=== PATIENT | female | born 1955 | race American Indian/Alaskan Native ===

== ENCOUNTER 2020-03-15 11:00 | Outpatient (CLI) | payer OTHER | END 2020-03-16 11:00 | disposition home or self-care (01) | LOC: SLR 11:00 | PROVIDERS: ATTEND Internal Medicine | DX: G47.33 Obstructive sleep apnea (adult) (pediatric) (principal); R40.0 Somnolence; I10 Essential (primary) hypertension; E66.9 Obesity, unspecified | CPT/HCPCS: G0399 ==

== ENCOUNTER 2021-01-16 20:24 | Emergency (ER) | payer MEDICARE, OTHER ==
[2021-01-16 20:41] VITALS: BP 171/101
--- NOTE | 2021-01-16 20:57 | Emergency Department Report ---
ED Lower Extremity HPI - General Chief Complaint: Extremity Injury, Lower Stated Complaint: RT HIP PAIN Time Seen by Provider: 01/16/21 20:52 Source: patient Mode of arrival: Ambulatory Limitations: No Limitations - History of Present Illness Initial Comments: The patient was evaluated in the emergency department for symptoms described in the history of present illness. He/she was evaluated in the context of the global COVID-19 pandemic, which necessitated consideration that the patient might be at risk for infection with the virus that causes COVID-19. Institutional protocols and algorithms that pertain to the evaluation of patients at risk for COVID-19 are in a state of rapid change based on information released by regulatory bodies including the CDC and federal and state organizations. These policies and algorithms were followed during the patient's care in the emergency department. Please note that these policies, procedures and recommendations changed on a rapid basis. 65-year-old -[place] female presents to the emergency room stating she has some pain in her right hip. Patient reports that she had tripped over some shoes but caught herself and now having pain in her right hip mostly in the middle groin area. Patient reports she has a history of hip replacement 2002 and concerned that she may have injured herself. She denies any true fall. She has not taken anything for it and this happened just about an hour prior to arrival. She reports that she started off using a cane and then went to crutches. Patient states that her orthopedic provider was Dr. Gerardo Camacho at [place]. She does have a primary care provider Dr. Ramirez at [facility]. Complaint: hip injury Onset/Timin -: hour(s) Injury: Hip: Right Type of Injury: hyperflexion Place: home Severity scale (0 -10): 7 Improves With: immobilization Worsens With: weight bearing, movement Associated Symptoms: able to partially bear weight - Related Data Allergies Allergy/AdvReac Type Severity Reaction Status Date / Time Penicillins AdvReac Hives Verified 01/16/21 20:36 ED Review of Systems ROS: Stated complaint: RT HIP PAIN Other details as noted in HPI Comment: All other systems reviewed and negative ED Past Medical Hx - Past Medical History Hx Hypertension: Yes - Surgical History Past Surgical History?: Yes Additional Surgical History: R hip replacement - Social History Smoking Status: Former Smoker Substance Use Type: Alcohol ED Physical Exam - General Limitations: No Limitations General appearance: alert, in no apparent distress - Head Head exam: Present: atraumatic, normocephalic - Eye Eye exam: Present: normal appearance - ENT ENT exam: Present: mucous membranes moist - Neck Neck exam: Present: normal inspection - Respiratory Respiratory exam: Present: normal lung sounds bilaterally. Absent: respiratory distress - Cardiovascular Cardiovascular Exam: Present: regular rate, normal rhythm. Absent: systolic murmur, diastolic murmur, rubs, gallop - GI/Abdominal GI/Abdominal exam: Present: soft, normal bowel sounds - Extremities Exam Extremities exam: Present: normal inspection - Expanded Lower Extremity Exam Right Hip exam: Present: full ROM, external rotation, internal rotation. Absent: tenderness, swelling, ecchymosis, deformity, shortening, pelvic stability Upper Leg exam: Present: normal inspection, full ROM Knee exam: Present: normal inspection Lower Leg exam: Present: normal inspection, full ROM - Back Exam Back exam: Present: normal inspection - Neurological Exam Neurological exam: Present: alert, oriented X3 - Psychiatric Psychiatric exam: Present: normal affect, normal mood - Skin Skin exam: Present: warm, dry, intact, normal color. Absent: rash ED Course Vital Signs 01/16/21 20:34 Temperature 99.1 F Pulse Rate 99 H Respiratory 18 Rate Blood Pressure 171/101 O2 Sat by Pulse 95 Oximetry ED Lower Extremity MDM - Radiology Data Radiology results: report reviewed [address] [address] XRay Report Signed Patient: STEPH TOLBERT MR#: [id number] : 1955 Acct:[id number] Age/Sex: 65 / F ADM Date: 01/16/21 Loc: ED Attending Dr: Ordering Physician: ANGEL LOMELI Date of Service: 01/16/21 Procedure(s): XR hip 2-3V RT Accession Number(s): [id number] cc: ANGEL LOMELI Fluoro Time In Minutes: RIGHT HIP 3 VIEWS INDICATION / CLINICAL INFORMATION: Injury with right hip pain. COMPARISON: None available. FINDINGS: BONES / JOINT(S): There is a right hip prosthesis without acute complication. The left hip joint is normal. There is moderate lower lumbar spondylosis. There is no evidence of acute fracture or subluxation. SOFT TISSUES: No significant abnormality. ADDITIONAL FINDINGS: None. Signer Name: Matt Merino MD Signed: 01/16/2021 9:26 PM Workstation Name: [id number] Transcribed By: RT Dictated By: Matt Merino MD Electronically Authenticated By: Matt Merino MD Signed Date/Time: 01/16/212125 DD/ 24 TD/TT: - Medical Decision Making 65-year-old -[place] female presents to the emergency room stating she has some pain in her right hip. Patient reports that she had tripped over some shoes but caught herself and now having pain in her right hip mostly in the middle groin area. Patient reports she has a history of hip replacement 2002 and concerned that she may have injured herself. She denies any true fall. She has not taken anything for it and this happened just about an hour prior to arrival. She reports that she started off using a cane and then went to crutches. Patient states that her orthopedic provider was Dr. Gerardo Camacho at [place]. She does have a primary care provider Dr. Ramirez at [facility]. X-ray of right hip has been ordered. Patient took ibuprofen from her personal prescription. X-ray of right hip shows no acute fractures or subluxation. Patient to take ibuprofen or Tylenol for pain. Follow-up with her primary care provider. Critical care attestation.: If time is entered above; I have spent that time in minutes in the direct care of this critically ill patient, excluding procedure time. ED Disposition Clinical Impression: Injury of right hip Qualifiers: Encounter type: initial encounter Qualified Code(s): S79.911A - Unspecified injury of right hip, initial encounter Strain of right hip Qualifiers: Encounter type: initial encounter Qualified Code(s): S76.011A - Strain of muscle, fascia and tendon of right hip, initial encounter Disposition: 01 HOME / SELF CARE / HOMELESS Is pt being admited?: No Does the pt Need Aspirin: No Condition: Stable Instructions: Adductor Muscle Strain Additional Instructions: X-rays are negative for any acute fractures or subluxation. Tylenol or ibuprofen for pain management. Follow-up with your primary care provider or orthopedic provider. Referrals: Your, orthopedist and primary care provider [Other] - 3-5 Days Time of Disposition: 21:37
--- NOTE | 2021-01-16 21:30 | XRay Report ---
RIGHT HIP 3 VIEWS INDICATION / CLINICAL INFORMATION: Injury with right hip pain. COMPARISON: None available. FINDINGS: BONES / JOINT(S): There is a right hip prosthesis without acute complication. The left hip joint is n ormal. There is moderate lower lumbar spondylosis. There is no evidence of acute fracture or subluxat ion. SOFT TISSUES: No significant abnormality. ADDITIONAL FINDINGS: None. Signer Name: Matt Merino MD Signed: 01/16/2021 9:26 PM Workstation Name: [id number]
== END 2021-01-16 22:00 | disposition home or self-care (01) ==
LOC: ED 20:24
DX: S76.011A Strain of muscle, fascia and tendon of right hip, initial encounter (principal); I10 Essential (primary) hypertension; Z87.891 Personal history of nicotine dependence; Z98.890 Other specified postprocedural states; Z72.89 Other problems related to lifestyle; Z88.0 Allergy status to penicillin; Z79.899 Other long term (current) drug therapy; W18.49XA Other slipping, tripping and stumbling without falling, initial encounter; Y93.89 Activity, other specified; Y92.89 Other specified places as the place of occurrence of the external cause; Y99.8 Other external cause status
CPT/HCPCS: 99283